=== PATIENT | male | born 1990 | race Two or more races ===

== ENCOUNTER 2017-10-21 23:24 | Emergency (ER) | payer MEDICAID, OTHER ==
[~2017-10-21] VITALS: Ht 188 cm; Wt 111.1 kg
[2017-10-21 23:27] VITALS: BP 146/88
== END 2017-10-21 23:51 | disposition home or self-care (01) ==
LOC: ER 23:30
DX: S60.561A Insect bite (nonvenomous) of right hand, initial encounter (principal); L03.114 Cellulitis of left upper limb; L08.9 Local infection of the skin and subcutaneous tissue, unspecified; W57.XXXA Bitten or stung by nonvenomous insect and other nonvenomous arthropods, initial encounter; Y93.89 Activity, other specified; Y92.89 Other specified places as the place of occurrence of the external cause; Y99.8 Other external cause status
CPT/HCPCS: A4606; Z7610

== ENCOUNTER 2017-11-04 17:12 | Emergency (ER) | payer MEDICAID, OTHER ==
[~2017-11-04] VITALS: Ht 188 cm; Wt 108.9 kg
[2017-11-04 17:19] VITALS: BP 140/87
[2017-11-04] MEDS ORDERED: SILVER SULFADIAZINE CREAM 25 GM TUBE ONE (18:26)
[2017-11-04] MEDS ORDERED: SILVER SULFADIAZINE CREAM 25 GM TUBE TOP ONE (18:30)
== END 2017-11-04 18:44 | disposition home or self-care (01) ==
LOC: ER 17:14
DX: S19.89XA Other specified injuries of other specified part of neck, initial encounter (principal); T22.20XA Burn of second degree of shoulder and upper limb, except wrist and hand, unspecified site, initial encounter; M25.512 Pain in left shoulder; F17.200 Nicotine dependence, unspecified, uncomplicated; V49.59XA Passenger injured in collision with other motor vehicles in traffic accident, initial encounter; Y93.89 Activity, other specified; Y92.410 Unspecified street and highway as the place of occurrence of the external cause; Y99.8 Other external cause status
CPT/HCPCS: 16020; 73010; 99284; 99406; A4606; Z7610

== ENCOUNTER 2019-09-16 00:15 | Emergency (ER) | payer MEDICAID ==
[~2019-09-16] VITALS: Ht 188 cm; Wt 90.7 kg
--- NOTE | 2019-09-16 00:17 | NUR ---
CALLED TO TRIAGE. PT NOT IN WAITING ROOM.
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
[2019-09-16] MEDS ORDERED: LIDOCAINE HCL/MPF 1% 30 ML VIAL IJ ONE (00:41)
--- NOTE | 2019-09-16 00:41 | NUR ---
XRAY AT BEDSIDE
[2019-09-16] MEDS ORDERED: TDAP [DIPH/PERTUSSIS/TET] 0.5 ML VIAL IM ONE ×2 (00:42→01:00)
--- NOTE | 2019-09-16 01:17 | NUR ---
EMT AT BEDSIDE FOR WOUND CARE.
--- NOTE | 2019-09-16 01:17 | NUR ---
Patient discharged to home in stable condition. Written and verbal after care instructions given. Patient verbalizes understanding of instruction. Pt ambulated with steady gait. vss.
[2019-09-16 01:18] VITALS: BP 142/82
== END 2019-09-16 01:19 | disposition home or self-care (01) ==
LOC: ER 00:15
DX: S61.412A Laceration without foreign body of left hand, initial encounter (principal); W51.XXXA Accidental striking against or bumped into by another person, initial encounter; Y93.89 Activity, other specified; Y92.89 Other specified places as the place of occurrence of the external cause; Y99.8 Other external cause status
CPT/HCPCS: 12001; 73130; 90471; 90715; 99283; J3490

== ENCOUNTER 2019-09-16 21:45 | Emergency (ER) | payer MEDICAID ==
[~2019-09-16] VITALS: Ht 188 cm; Wt 90.7 kg
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
[2019-09-16 22:19] VITALS: BP 135/86
== END 2019-09-16 22:20 | disposition home or self-care (01) ==
LOC: ER 21:49
DX: S61.412A Laceration without foreign body of left hand, initial encounter (principal); W50.3XXA Accidental bite by another person, initial encounter; Y93.89 Activity, other specified; Y92.89 Other specified places as the place of occurrence of the external cause; Y99.8 Other external cause status

== ENCOUNTER 2019-10-07 22:04 | Emergency (ER) | payer MEDICAID, OTHER ==
[~2019-10-07] VITALS: Ht 188 cm; Wt 90.7 kg
[2019-10-07 22:14] VITALS: BP 158/99
[2019-10-07] MEDS ORDERED: LIDOCAINE 2% 20 ML MDV ONE (22:26)
[2019-10-07] MEDS ORDERED: BUPIVACAINE 0.5 % PF 150 MG/30 ML VIAL ONE (22:27)
[2019-10-07] MEDS: BUPIVACAINE 0.5 % PF 150 MG/30 ML VIAL IJ ONE (22:30)
[2019-10-07] MEDS: LIDOCAINE 2% 20 ML MDV TP ONE (22:30)
--- NOTE | 2019-10-07 22:55 | NUR ---
DRU AGRICULTURE INTERN FINISHED WITH SUTURES
== END 2019-10-08 00:42 | disposition home or self-care (01) ==
LOC: ER 22:04
DX: S61.216A Laceration without foreign body of right little finger without damage to nail, initial encounter (principal); F11.10 Opioid abuse, uncomplicated; F17.200 Nicotine dependence, unspecified, uncomplicated; F12.90 Cannabis use, unspecified, uncomplicated; W26.0XXA Contact with knife, initial encounter; Y93.89 Activity, other specified; Y92.89 Other specified places as the place of occurrence of the external cause; Y99.8 Other external cause status
CPT/HCPCS: 12001; 99282; J3490 ×2

== ENCOUNTER 2024-06-21 22:27 | Emergency (ER) | payer OTHER ==
[~2024-06-21] VITALS: Ht 188 cm; Wt 104.3 kg
[2024-06-21 23:28] VITALS: BP 155/94; TEMP 97.8
[2024-06-22] MEDS ORDERED: CEPHALEXIN MONOHYDRATE 500 MG CAPSULE PO ONE (00:05)
[2024-06-22] MEDS ORDERED: TDAP [DIPH/PERTUSSIS/TET] 0.5 ML VIAL IM ONE (00:06)
[2024-06-22] MEDS ORDERED: IBUPROFEN 600 MG TABLET ONE (00:06)
[2024-06-22] MEDS: CEPHALEXIN MONOHYDRATE 500 MG CAPSULE PO ONE (00:08)
[2024-06-22] MEDS: IBUPROFEN 600 MG TABLET PO ONE (00:09)
[2024-06-22] MEDS ORDERED: CEPH-570 PO (00:24)
[2024-06-22] MEDS ORDERED: IBUP-1490 PO (00:24)
[2024-06-22 00:26] VITALS: O2SAT 100
[2024-06-22] MEDS: TDAP [DIPH/PERTUSSIS/TET] 0.5 ML VIAL IM ONE (00:26)
== END 2024-06-22 00:27 | disposition home or self-care (01) ==
LOC: ER 22:36
DX: S61.211A Laceration without foreign body of left index finger without damage to nail, initial encounter (principal); F17.200 Nicotine dependence, unspecified, uncomplicated; Z91.048 Other nonmedicinal substance allergy status; W27.0XXA Contact with workbench tool, initial encounter; Y93.89 Activity, other specified; Y92.89 Other specified places as the place of occurrence of the external cause; Y99.0 Civilian activity done for income or pay
CPT/HCPCS: 73140-TC; 90715